=== PATIENT | female | born 1980 | race Caucasian/White ===

== ENCOUNTER 2021-12-20 17:41 | Emergency (ER) | payer BC, OTHER ==
[2021-12-20] MEDS ORDERED: ACETAMINOPHEN 500 MG TABLET (FP) PO ONE (17:51)
[2021-12-20] MEDS ORDERED: ACETAMINOPHEN 500 MG TABLET (FP) ONE (17:55)
[2021-12-20 18:14] VITALS: BP 101/79; PULSE 74; RESP 18; TEMP 97; BMI 23.0
== END 2021-12-20 19:39 | disposition home or self-care (01) ==
LOC: FER 17:41
DX: S49.92XA Unspecified injury of left shoulder and upper arm, initial encounter (principal); M79.602 Pain in left arm; V18.0XXA Pedal cycle driver injured in noncollision transport accident in nontraffic accident, initial encounter
CPT/HCPCS: 73030-TC-LT-FY; 73060-TC-LT-FY; 73070-TC-LT-FY; 73090-TC-LT-FY; 73110-TC-LT-FY; 73130-TC-LT-FY; 99284-25